=== PATIENT | male | born 1990 | race Caucasian/White ===

== ENCOUNTER 2018-02-05 21:40 | Emergency (ER) | payer OTHER ==
[2018-02-06] MEDS: ERYTHROMYCIN 1 GM OPH OINT BOTH EYES (01:39)
== END 2018-02-06 01:54 | disposition home or self-care (01) ==
LOC: FTE 21:40
DX: H10.33 Unspecified acute conjunctivitis, bilateral (principal); Z87.891 Personal history of nicotine dependence
CPT/HCPCS: 99282; Z7502